=== PATIENT | female | born 1955 | race Caucasian/White ===

== ENCOUNTER 2019-05-21 13:11 | Inpatient (IN) ==
--- NOTE | 2019-05-21 13:56 | Diag Imaging Result Doc PS360 ---
EXAM: CHEST-2 VIEWS HISTORY: sob TECHNIQUE: Two views COMPARISON: 08/22/2016 FINDINGS: The lungs are well expanded. The heart is not enlarged. The vessels are not distended. There are left lower lobe infiltrates. No pleural effusions. IMPRESSION: Left lower lobe pneumonia. Electronically signed by Yaw Lopez 05/21/2019 1:53 PM
[2019-05-21 14:12] LABS: BE 2.8 mmoll (-3.0-3.0); BLOOD TYPE ARTERIAL; METHB 1.4 % (0.0-1.5); O2(CT) 16.5 mL/dL (15.0-23.0); PCO2(98.6) 35 mmHg (35-45); PO2(98.6) 60 mmHg (60-100); SAMPLE BLOOD; SAO2 94.4 % (95.0-100.0); THB 12.9 g/dL (11.5-17.4); pH(98.6) 7.48 (7.35-7.45)
[2019-05-21 14:15] LABS: ALLEN TEST YES; MODALITY ROOM AIR
[2019-05-21] MEDS ORDERED: NS 1,000 ML IV ONE ×2 (14:18)
[2019-05-21] MEDS ORDERED: LEVAQUIN 750 MG/D5W 750 MG/150 ML IVPB IV ONE (14:18)
--- NOTE | 2019-05-21 14:21 | PROVIDER DOCUMENTATION ---
HPI-Fever - General Chief Complaint: SEPSIS ALERT - P Stated Complaint: FLU SX, N/V/D Time Seen by Provider: 05/21/19 13:51 Source: patient Allergies/Adverse Reactions: Patient Allergies Allergy/AdvReac Type Severity Reaction Status Date / Time No Known Allergies Allergy Verified 01/30/14 19:17 Home Medications: Home Medication List Medication Instructions Recorded Confirmed Last Taken Type ATORVAstatin [Lipitor] 20 mg PO HS 01/30/14 08/23/16 Unknown History Furosemide 40 mg PO DAILY 01/30/14 08/22/16 Unknown History Glimepiride 4 mg PO DAILY 01/30/14 08/22/16 Unknown History Losartan/Hydrochlorothiazide 1 tab PO DAILY 01/30/14 08/22/16 Unknown History [Losartan-Hctz 100-25 mg Tab] Nifedipine [Nifedical Xl] 30 mg PO DAILY 01/30/14 08/22/16 Unknown History Meclizine [Antivert] 25 mg PO Q6H PRN 08/23/16 08/23/16 Unknown History Metformin [Glucophage] 1,000 mg PO DAILY 08/23/16 08/23/16 Unknown History Metformin [Glucophage] 500 mg PO WSUPPER 08/23/16 08/23/16 Unknown History Levofloxacin [Levaquin] 500 mg PO DAILY #12 tablet 08/24/16 Unknown Rx Metronidazole [Flagyl] 500 mg PO TID #36 tablet 08/24/16 Unknown Rx - History of Present Illness-Fever Nature of Presenting Problem: 63 YOF PRESENTS WITH KNOWN INFLUENZA DX THURSDAY. WITH WORSENING COUGH, CONGESTION, SOB. 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 denies: see HPI, discharge, dry eyes, decreased vision, blurred vision, double vision, eye pain, redness, other Ears, Nose, Mouth & Throat: reports: no symptoms reported. denies: see HPI, ear discharge, ear pain, hearing loss, tinnitus, epistaxis, sinus problem, nose pain, loose teeth, mouth/dental pain, mouth swelling, hoarseness, throat pain, throat swelling, other Cardiovascular: reports: no symptoms reported. denies: see HPI, chest pain, edema, heart murmur, irregular heart rate, orthopnea, palpitations, poor circulation, PND, syncope, other Respiratory: reports: see HPI, cough, dyspnea on exertion, excessive sputum production, shortness of breath. denies: no symptoms reported, chronic cough, hemoptysis, pleurisy, wheezing, other Gastrointestinal: reports: no symptoms reported. denies: see HPI, abdominal pain, hematemesis, constipation, diarrhea, difficulty swallowing, frequent heartburn, nausea, poor appetite, rectal bleeding, vomiting, other Genitourinary: reports: no symptoms reported. denies: see HPI, dysuria, discharge, frequency, flank pain, frequent UTI's, hematuria, hesitency, incontinence, urinary retention, urgency, other Musculoskeletal: reports: muscle weakness (GENERALIZED) Integumentary: reports: no symptoms reported. denies: see HPI, hives, hair loss, itching, mole changes, nail changes, rash, skin sores/ulcer, skin thickening, other Neurological: reports: no symptoms reported. denies: see HPI, ataxia, dizziness/vertigo, headache/migraines, loss of balance, numbness, paresthesia, seizure, slurred speech, syncope, tremors, other Psychiatric: reports: no symptoms reported. denies: see HPI, anxiety, anti- depressant use, alcohol/drug dependence, depression, emotional problems, insomnia, panic attacks, suicidal thoughts, other Endocrine: reports: no symptoms reported. denies: see HPI, change in skin pigment, excessive sweating, goiter, cold intolerance, heat intolerance, increased hunger, increased thirst, polyuria, other Hematologic/Lymphatic: reports: no symptoms reported. denies: see HPI, blood clots, easy bruising, low blood count, lymphedema, prolonged bleeding, swollen lymph nodes, transfusions, other Allergic/Immunologic: reports: no symptoms reported. denies: see HPI, allergic reactions, allergic rhinitis, asthma, eczema, food allergy, frequent infections, hay fever, hives, positive PPD, urticaria, other Past History - Adult - PAST MEDICAL HISTORY-ADULT Review of Records: reports: Nursing Assessment Review, Social history reviewed & non-contributory. Major Childhood Illnesses: reports: denies history Cardiovascular: reports: HTN Respiratory: reports: denies history Gastrointestinal: reports: diverticulosis Obstetrical/Gynecological: reports: denies history Genitourinary: reports: denies history Musculoskeletal: reports: denies history Neurological: reports: denies history Psychiatric: reports: denies history Endocrine/Immune: reports: Diabetes Other Conditions: reports: denies history - PRIOR SURGERIES/PROCEDURES Surgical/Procedure History: reports: BTL, other (tubal ligation and carpal tunnel) - IMMUNIZATION STATUS Childhood Immunizations: See Nurse Assessment Flu Vaccine: See Nurse Assessment - FAMILY HISTORY Family History: reviewed, not pertinent Physical Exam-General - PHYSICAL EXAM-ADULT Initial Vital Signs Reviewed: Yes - CONSTITUTIONAL General Appearance: alert, no apparent distress - EYES Eyes: PERRL/EOMI, pink conjunctivae - HEAD, EARS, NOSE, MOUTH & THROAT HENMT: normocephalic/atraumatic, moist mucous membranes, normal ENT inspection - NECK Neck: non-tender, full range of motion, supple - RESPIRATORY Respiratory: chest non-tender, no respiratory distress, no accessory muscle use, crackles - CARDIOVASCULAR Cardiovascular: normal peripheral pulses, regular rate, rhythm, no edema, no gallop, no JVD, no murmur - GASTROINTESTINAL (ABDOMEN) Abdominal Exam: normal bowel sounds, non tender, soft - LYMPHATIC Lymphatic: no adenopathy - MUSCULOSKELETAL Back Exam: normal inspection, no CVA tenderness, no vertebral tenderness Extremity: normal range of motion, non-tender, normal gait - SKIN Integumentary: normal color, normal turgor, warm/dry - NEUROLOGIC Neurologic: grossly normal - PSYCHIATRIC Psych/Mental Status: normal mood/affect, oriented x 3 Progress - PLAN OF CARE/RESULTS Progress/Plan/Lab Results: Vital Signs - 8 hr 05/21/19 13:13 05/21/19 14:37 Temperature 98.3 F Pulse Rate 112 H 100 H Respiratory Rate 22 22 Blood Pressure 157/95 133/90 O2 Sat by Pulse Oximetry 90 L 96 Laboratory Results - last 24 hr 05/21/19 05/21/19 05/21/19 13:48 14:07 14:07 WBC RBC Hgb Hct MCV MCH MCHC RDW Std Deviation Plt Count MPV Immature Gran % (Auto) Neut % (Auto) Lymph % (Auto) [place] % (Auto) Eos % (Auto) Baso % (Auto) Immature Gran # (Auto) Neut # (Auto) Lymph # (Auto) [place] # (Auto) Eos # (Auto) Baso # (Auto) Segmented Neutrophils Lymphocytes Monocytes Eosinophils PT 13.4 INR 0.97 PTT (Actin FS) 37.7 Specimen Type ARTERIAL Sample Site R RADIAL pH 7.48 H pCO2 35 pO2 60 HCO3 27.0 H Base Excess 2.8 Oxyhemoglobin 91.0 L ABG O2 Sat (Calculated) 16.5 ABG O2 Saturation 94.4 L ABG Carboxyhemoglobin 2.20 ABG Methemoglobin 1.4 Heri Test YES A-a O2 Difference 46.0 Total Hemoglobin 12.9 Lactate 2.30 H Blood Gas Modality ROOM AIR FiO2 % 21.0 Sodium 133 L Potassium 3.1 L Chloride 92 L Carbon Dioxide 24 L Anion Gap 17 BUN 17 Creatinine 0.9 Estimated GFR/1.73 m2 > 60 BUN/Creatinine Ratio 19 Glucose 154 H Calculated Osmolality 271 Calcium 9.2 Total Bilirubin 0.50 AST 53 H ALT 19 Alkaline Phosphatase 57 Creatine Kinase 418 H Troponin T Total Protein 8.4 H Albumin 3.8 Globulin 5.0 Albumin/Globulin Ratio 1.0 Plasma Lactate Urine Source Urine Color Urine Turbidity Urine pH Ur Specific [place] Urine Protein Ur Glucose (Stick) Ur Ketones (Stick) Urine Blood Urine Nitrite Urine Bilirubin Urobilinogen Dipstick Urine Leukocytes Urine WBC (Auto) Urine RBC (Auto) U Epithel Cells (Auto) Urine Bacteria (Auto) Urine Crystals Small Round Cells Urine Casts Urine Yeast-like Cells 05/21/19 05/21/19 05/21/19 14:07 14:07 14:07 WBC 12.27 H RBC 4.50 Hgb 11.7 L Hct 37.1 MCV 82.4 MCH 26.0 L MCHC 31.5 L RDW Std Deviation 15.3 H Plt Count 397 MPV 10.3 Immature Gran % (Auto) 0.3 Neut % (Auto) 76.0 H Lymph % (Auto) 13.6 L [place] % (Auto) 8.8 Eos % (Auto) 1.0 Baso % (Auto) 0.3 Immature Gran # (Auto) 0.04 Neut # (Auto) 9.32 H Lymph # (Auto) 1.67 [place] # (Auto) 1.08 H Eos # (Auto) 0.12 Baso # (Auto) 0.04 Segmented Neutrophils 76 H Lymphocytes 14 L Monocytes 9 Eosinophils 1 PT INR PTT (Actin FS) Specimen Type Sample Site pH pCO2 pO2 HCO3 Base Excess Oxyhemoglobin ABG O2 Sat (Calculated) ABG O2 Saturation ABG Carboxyhemoglobin ABG Methemoglobin Heri Test A-a O2 Difference Total Hemoglobin Lactate Blood Gas Modality FiO2 % Sodium Potassium Chloride Carbon Dioxide Anion Gap BUN Creatinine Estimated GFR/1.73 m2 BUN/Creatinine Ratio Glucose Calculated Osmolality Calcium Total Bilirubin AST ALT Alkaline Phosphatase Creatine Kinase Troponin T < 0.010 Total Protein Albumin Globulin Albumin/Globulin Ratio Plasma Lactate 2.1 Urine Source Urine Color Urine Turbidity Urine pH Ur Specific [place] Urine Protein Ur Glucose (Stick) Ur Ketones (Stick) Urine Blood Urine Nitrite Urine Bilirubin Urobilinogen Dipstick Urine Leukocytes Urine WBC (Auto) Urine RBC (Auto) U Epithel Cells (Auto) Urine Bacteria (Auto) Urine Crystals Small Round Cells Urine Casts Urine Yeast-like Cells 05/21/19 14:17 WBC RBC Hgb Hct MCV MCH MCHC RDW Std Deviation Plt Count MPV Immature Gran % (Auto) Neut % (Auto) Lymph % (Auto) [place] % (Auto) Eos % (Auto) Baso % (Auto) Immature Gran # (Auto) Neut # (Auto) Lymph # (Auto) [place] # (Auto) Eos # (Auto) Baso # (Auto) Segmented Neutrophils Lymphocytes Monocytes Eosinophils PT INR PTT (Actin FS) Specimen Type Sample Site pH pCO2 pO2 HCO3 Base Excess Oxyhemoglobin ABG O2 Sat (Calculated) ABG O2 Saturation ABG Carboxyhemoglobin ABG Methemoglobin Heri Test A-a O2 Difference Total Hemoglobin Lactate Blood Gas Modality FiO2 % Sodium Potassium Chloride Carbon Dioxide Anion Gap BUN Creatinine Estimated GFR/1.73 m2 BUN/Creatinine Ratio Glucose Calculated Osmolality Calcium Total Bilirubin AST ALT Alkaline Phosphatase Creatine Kinase Troponin T Total Protein Albumin Globulin Albumin/Globulin Ratio Plasma Lactate Urine Source CLEAN CATCH Urine Color YELLOW Urine Turbidity HAZY Urine pH 5.5 Ur Specific [place] 1.012 Urine Protein TRACE A Ur Glucose (Stick) NEGATIVE Ur Ketones (Stick) NEGATIVE Urine Blood NEGATIVE Urine Nitrite NEGATIVE Urine Bilirubin NEGATIVE Urobilinogen Dipstick NORMAL Urine Leukocytes LARGE A Urine WBC (Auto) 20-40 A Urine RBC (Auto) Not Reportable U Epithel Cells (Auto) >10 A Urine Bacteria (Auto) 2+ Urine Crystals URIC ACID PRESENT Small Round Cells RENAL PRESENT Urine Casts NONE SEEN Urine Yeast-like Cells NONE SEEN Orders Category Date Time Status Cardiac Monitoring DIRECTED Care 05/21/19 13:19 Active IV Insertion ORDERED Care 05/21/19 13:19 Completed Notify MD of + Sepsis Screen NOW Care 05/21/19 13:19 Completed CHEST-2 VIEWS [RAD] Stat Exams 05/21/19 13:19 Completed ABG [RESP] Routine Lab 05/21/19 13:48 Completed BLOOD CULTURE [BLDCUL] Stat Lab 05/21/19 14:05 Ordered CBC WITH DIFF [HEME] Stat Lab 05/21/19 14:07 Completed CK PROFILE [SP CHEM] Stat Lab 05/21/19 14:07 Results COMPREHENSIVE METABOLIC PANEL [CHEM] Stat Lab 05/21/19 14:07 Results LACTATE, PLASMA [CHEM] Lab 05/21/19 16:30 Uncollected LACTATE, PLASMA [CHEM] Lab 05/21/19 19:30 Uncollected LACTATE, PLASMA [CHEM] Q3H Lab 05/21/19 14:07 Completed PROTIME WITH INR [COAG] Stat Lab 05/21/19 14:07 Completed PTT [COAG] Stat Lab 05/21/19 14:07 Completed TROPONIN T Stat Lab 05/21/19 14:07 Completed URINALYSIS W/POSS RFLX CULT [URINALYSIS] Stat Lab 05/21/19 14:17 Results URINE CULTURE [RM] Routine Lab 05/21/19 14:47 Ordered URINE MANUAL MICROSCOPIC [URINALYSIS] Stat Lab 05/21/19 14:17 Results 0.9% Sodium Chloride Inj [Ns] 1,000 ml Med 05/21/19 14:18 Active IV 999 mls/hr 0.9% Sodium Chloride Inj [Ns] 1,000 ml Med 05/21/19 14:18 Active IV 999 mls/hr Benzonatate [Tessalon] Med 05/21/19 14:39 Discontinued 100 mg PO NOW ONE Levofloxacin 750 mg/D5w [Levaquin 750 mg/D5w] Med 05/21/19 14:18 Active 750 mg in 150 ml IV NOW Oxygen Device Stat Oth 05/21/19 13:19 Active Result Diagrams: 05/21/19 14:07 05/21/19 14:07 - XRAY 1 XRAY Study: Chest Impression: See EMR Report (EXAM: CHEST-2 VIEWS HISTORY: sob TECHNIQUE: Two views COMPARISON: 08/22/2016 FINDINGS: The lungs are well expanded. The heart is not enlarged. The vessels are not distended. There are left lower lobe infiltrates. No pleural effusions. IMPRESSION: Left lower lobe pneumonia. Electronically signed by Yaw Lopez 05/21/2019 1:53 PM 05/21/19 1353 Interpreting Physician: Yaw Lopez MD Dictated Date/Time: 05/21/19 1353 cc: Alan Ma MD; Kenna Whitney MD) - CONSULTS/PCP/HOSPITALIST Notification #1 *Consult/PCP/Hospitalist*: DR. HENDERSON Time Discussed: 14:49 Consult Disposition: Admit Departure - Departure Date of Disposition Decision: 05/21/19 Time of Disposition Decision: 14:42 DIAGNOSIS: Pneumonia, Influenza, Hypoxia, Hypokalemia Disposition: ADMITTED INPATIENT 09 Certified Medical Emergency: Emergent Condition: Stable Referrals and Follow-Ups: Kenna Whitney MD [Primary Care Provider] - - Critical Care Note This patient required my direct & personal management of CC.: No Attestation - Physician/ YOJANA Attestation Patient care was provided by Advanced Practice Provider:: Yes Advanced Practice Provider:: Mi Holland Advanced Practice Provider documentation review:: The Mid-level provider documentation, treatment plan and medical decision making was reviewed by the physician who agrees with all treatment and medical decision making by the MLP. The physician spent face to face time with patient:: No Advanced Practice Provider documentation review:: Supervising physician onsite and consulted in the evaluation and care of this patient. The physician did not have a face to face encounter with the patient.
[2019-05-21 14:22] LABS: URINE SOURCE CLEAN CATCH
[2019-05-21 14:25] LABS: BILIRUBIN URINE NEGATIVE (NEGATIVE); BLOOD URINE NEGATIVE (NEGATIVE); COLOR YELLOW; GLUCOSE URINE NEGATIVE (NEGATIVE); KETONE URINE NEGATIVE (NEGATIVE); LEUKOCYTES URINE LARGE (NEGATIVE); NITRITE URINE NEGATIVE (NEGATIVE); PH URINE 5.5; PROTEIN URINE TRACE mg/dL (NEGATIVE); SP GRAVITY URINE 1.012; TURBIDITY URINE HAZY (CLEAR); UROBILINOGEN URINE NORMAL (NORMAL)
[2019-05-21 14:30] LABS: BASO# 0.04 X1000 (0.0-0.2); BASO% 0.3 % (0.0-0.8); EOS# 0.12 X1000 (0.0-0.7); HEMATOCRIT 37.1 % (37.0-47.0); HEMOGLOBIN 11.7 g/dL (12.0-16.0); IMM GRAN# 0.04 X1000 (0.0-0.04); IMM GRAN% 0.3 % (0.0-0.5); INR 0.97; LYMPH# 1.67 X1000 (1.2-3.4); LYMPH% 13.6 % (20.5-51.1); MCHC 31.5 g/dL (33-37); MCV 82.4 FL (81-99); MONO# 1.08 X1000 (0.11-0.59); MONO% 8.8 % (1.7-9.3); MPV 10.3 FL (7.4-10.4); NEUT# 9.32 X1000 (1.4-6.5); PLT 397 X1000 (130-400); PROTIME 13.4 Seconds (11.0-16.0); RDW 15.3 % (11.5-14.5); WBC 12.27 X1000 (4.8-10.8)
[2019-05-21 14:31] LABS: EOS 1 % (1-10); LYMPHS 14 % (21-51); MONO 9 % (1-9); PTT 37.7 Seconds (22.3-41.8); SEGS 76 % (42-75)
[2019-05-21 14:39] LABS: AGAP 17; ALBUMIN 3.8 g/dL (3.5-5.0); ALKALINE PHOSPHATASE 57 U/L (32-104); BUN 17 mg/dL (8-22); CALCIUM 9.2 mg/dL (8.8-10.2); CHLORIDE 92 mmol/L (98-107); COSMO 271; CREATININE 0.9 mg/dL (0.5-0.9); ESTIMATED GFR > 60; GLUCOSE 154 mg/dL (70-104); GOT 53 U/L (10-30); GPT 19 U/L (10-36); POTASSIUM 3.1 mmol/L (3.5-5.1); SODIUM 133 mmol/L (136-145); TCO2 24 mmol/L (25-35); TOTAL PROTEIN 8.4 g/dL (6.3-8.3)
[2019-05-21] MEDS ORDERED: TESSALON PO ONE (14:39)
[2019-05-21 14:41] LABS: CK PROFILE 418 U/L (24-173)
[2019-05-21 14:46] LABS: UR EPITHELIAL CELLS >10 /HPF (<10); URINE BACTERIA 2+ /HPF; URINE CASTS NONE SEEN; URINE WBC 20-40 /HPF (<10); URINE YEAST NONE SEEN
[2019-05-21 14:47] LABS: URINE CRYSTALS URIC ACID PRESENT; URINE SMALL ROUND CELLS RENAL PRESENT
[2019-05-21 15:02] LABS: CK INDEX 0.6 (0.0-2.5); CK-MB 2.65 ng/mL (0.0-5.0)
[2019-05-21] MEDS ORDERED: DUONEB (A & A) INH PRN (16:02)
[2019-05-21] MEDS ORDERED: ROCEPHIN 1 GM in NS 50 ML IV SCH (16:02)
[2019-05-21] MEDS ORDERED: ZOFRAN IV PRN (16:08)
[2019-05-21] MEDS ORDERED: ANTIVERT PO PRN (16:08)
[2019-05-21] MEDS ORDERED: TYLENOL PO PRN (16:08)
[2019-05-21] MEDS ORDERED: KLOR-CON PO ONE (16:10)
[2019-05-21 16:59] LABS: HEMOGLOBIN A1C 9.2 % (4.8-6.0)
--- NOTE | 2019-05-21 17:13 | HISTORY AND PHYSICAL ---
CHIEF COMPLAINT: Shortness of breath and cough. This is a 61-year-old female with past medical history diabetes, hyperlipidemia and hypertension who presented to emergency department complaining of 3 day history of cough and shortness of breath that was getting progressively worse. She did not notice any fever. The patient apparently was diagnosed influenza on Thursday. Denies any sick contacts. Here in the emergency department she was worked up and white cell count was found to be 12,000 and the x- ray shows left lower lobe pneumonia, she is going to be admitted for further evaluation and treatment. PAST MEDICAL HISTORY: 1. Diabetes mellitus type 2. 2. Hyperlipidemia . 3. Hypertension. 4. History of diverticulosis. PAST SURGICAL HISTORY: 1. Tubal ligation . 2. Cervical fusion. 3. Carpal syndrome. SOCIAL HISTORY: Patient lives alone, denies any tobacco, alcohol or illicit drug use. FAMILY HISTORY: Positive for mother with cervical cancer and stroke. Father of old age, sister has diabetes. ALLERGIES: No known drug allergies. REVIEW OF SYSTEMS: Were reviewed and all symptoms are related to H and P. PHYSICAL EXAMINATION: VITALS: Temperature 98.3 degrees, heart rate 100, respiratory rate 22, blood pressure 133/90, O2 saturation 96% 2 L nasal cannula. GENERAL: This is a 63-year-old female lying in bed in no acute distress. HEENT: Head is normocephalic, atraumatic. NECK: No JVD noted. No carotid bruits, no lymphadenopathy. CARDIOVASCULAR: S1, S2 heard. No murmurs, gallops, or rubs. Regular rate and rhythm. RESPIRATORY: Rhonchi is noted on the left lower base, patient not using any accessory muscles or having work of breathing. ABDOMEN: Soft, nontender to palpation. Bowel sounds present. No organomegaly. EXTREMITIES: No clubbing, cyanosis or edema. Peripheral pulses present in both legs. NEUROLOGICAL: The patient alert, oriented x3, moves 4 extremities. LABORATORY DATA: White cell count 12.37, hemoglobin 11.7, hematocrit 37.1, platelets 397,000 with ABG also shows pH 7.3 with pCO2 35, PO2 60, potassium 3.1, glucose 154. ASSESSMENT/PLAN: 1. Acute respiratory failure secondary to left lower lobe pneumonia, will start ceftriaxone, azithromycin, breathing treatment continue DuoNeb every 4 hours as scheduled, will continue to check CBC and BMP daily. 2. Diabetes mellitus type 2. Will hold metformin and glipizide and will start sliding scale insulin moderate doses and Accu-Chek before meals and also bedtime. 3. Hyperlipidemia, will continue with statins. 4. Hypokalemia, will replete potassium and check BMP tomorrow. 5. Further recommendations to follow according to the clinical situation of the patient . cc: Rai Marroquin MD MTDD
[2019-05-21] MEDS: HUMALOG SUBQ SCH ×2 (17:37→22:20)
[2019-05-21] MEDS: NS 1,000 ML IV SCH (17:37)
[2019-05-21] MEDS: ROCEPHIN 1 GM in NS 50 ML IV SCH (17:38)
[2019-05-21] MEDS: LOVENOX SUBQ SCH (17:38)
[2019-05-21] MEDS: ZITHROMAX 500 MG/NS 500 MG/250 ML IVPB IV SCH (18:23)
[2019-05-21] MEDS: DUONEB (A & A) INH SCH ×2 (19:55→22:51)
[2019-05-21] MEDS ORDERED: LIPITOR PO SCH (21:00)
[2019-05-21] MEDS: LIPITOR PO SCH (22:20)
[2019-05-22] MEDS ORDERED: BLISTEX MEDICATED BERRY LIP BALM TOP PRN (02:17)
[2019-05-22] MEDS: DUONEB (A & A) INH SCH ×6 (02:52→22:51)
[2019-05-22] MEDS: NS 1,000 ML IV SCH ×3 (03:26→22:10)
[2019-05-22 06:10] LABS: BASO# 0.04 X1000 (0.0-0.2); BASO% 0.5 % (0.0-0.8); EOS# 0.09 X1000 (0.0-0.7); EOS% 1.1 % (0.0-10.0); HEMATOCRIT 33.3 % (37.0-47.0); HEMOGLOBIN 10.4 g/dL (12.0-16.0); IMM GRAN# 0.03 X1000 (0.0-0.04); IMM GRAN% 0.4 % (0.0-0.5); LYMPH# 1.29 X1000 (1.2-3.4); LYMPH% 15.5 % (20.5-51.1); MCH 26.7 PG (27-31); MCHC 31.2 g/dL (33-37); MCV 85.4 FL (81-99); MONO# 0.68 X1000 (0.11-0.59); MONO% 8.2 % (1.7-9.3); MPV 9.9 FL (7.4-10.4); NEUT# 6.18 X1000 (1.4-6.5); NEUT% 74.3 % (42.2-75.2); PLT 351 X1000 (130-400); RDW 15.4 % (11.5-14.5); WBC 8.31 X1000 (4.8-10.8)
[2019-05-22 06:14] LABS: AGAP 13; BUN 9 mg/dL (8-22); CALCIUM 8.2 mg/dL (8.8-10.2); CHLORIDE 101 mmol/L (98-107); COSMO 278; CREATININE 0.6 mg/dL (0.5-0.9); ESTIMATED GFR > 60; GLUCOSE 172 mg/dL (70-104); SODIUM 138 mmol/L (136-145); TCO2 24 mmol/L (25-35)
[2019-05-22] MEDS: HUMALOG SUBQ SCH (06:22)
[2019-05-22] MEDS: PRILOSEC PO SCH (06:46)
[2019-05-22] MEDS: HUMALOG (PARKWAY) SUBQ SCH ×4 (06:47→22:09)
[2019-05-22] MEDS ORDERED: KLOR-CON PO ONE (08:04)
[2019-05-22] MEDS ORDERED: HYZAAR 50/12.5 MG PO SCH (09:00)
[2019-05-22] MEDS: COZAAR PO SCH (10:41)
[2019-05-22] MEDS: ADALAT CC PO SCH (10:42)
[2019-05-22] MEDS: HYDROCHLOROTHIAZIDE PO SCH (10:42)
[2019-05-22] MEDS: LASIX PO SCH (10:42)
[2019-05-22] MEDS ORDERED: MAGNESIUM SULFATE 2 GM/S.W.I. 2 GM/50 ML IVPB IV ONE (11:19)
--- NOTE | 2019-05-22 12:01 | PROGRESS NOTE ---
DATE: 05/22/2019 SUBJECTIVE: This patient seems to be feeling much better today. She came in with acute respiratory failure due to pneumonia, and apparently she was diagnosed with influenza last Thursday. As per the patient, she took 1-time dose treatment, but no Tamiflu. OBJECTIVE: Vital Signs: Temperature 98.3 degrees, pulse 90, respiratory rate 20, blood pressure 149/71, oxygen saturation 96 on 2 L of nasal cannula. HEENT: Head normocephalic. No trauma. PERRLA. Neck: Supple. No JVD. No masses. Central trachea. Chest: Decreased breath sounds globally with some crepitus and rhonchi, mostly on the left side, left base. Abdomen: Soft, nontender, nondistended. No hepatosplenomegaly. Extremities: No edema, no clubbing, no cyanosis. Neurological: The patient is alert. She is oriented x3. No focal deficits. LABORATORY DATA: WBC 8.1, hemoglobin 10.4, hematocrit 33.3, platelets 351,000. Sodium 138, potassium 3.0, chloride 101, bicarbonate 24, BUN 9, creatinine 0.6, glucose 172, calcium 9.2. Magnesium 1.4. Hemoglobin A1c 9.2. ASSESSMENT AND PLAN: 1. Acute hypoxemic respiratory failure due to left lower lobe pneumonia. As per the patient, she also had a recent history of influenza, and she received a x1 dose of treatment, but she does not remember the name. She did not get Tamiflu though. She has been placed here on ceftriaxone and azithromycin, breathing treatment, and oxygen supplementation, and she seems to be doing better. 2. Hypokalemia. I will replace the potassium. Magnesium level is also low. 3. Hypomagnesemia. Aware. Magnesium level will be replaced. 4. Type 2 diabetes with an elevated hemoglobin A1c at 9.2. Diet and exercise also has been discussed with the patient. We will continue with the same management for now. 5. Hyperlipidemia. Continue with statins. Overall, this patient seems to be feeling a little bit better, but she is still complaining of shortness of breath and cough. Will continue with the same management for now, and will monitor. I do believe in 48 to 72 hours, this patient can be discharged. cc: Diego An MD
[2019-05-22] MEDS: LOVENOX SUBQ SCH (16:42)
[2019-05-22] MEDS: ROCEPHIN 1 GM in NS 50 ML IV SCH (16:42)
[2019-05-22] MEDS: ZITHROMAX 500 MG/NS 500 MG/250 ML IVPB IV SCH (18:06)
[2019-05-22] MEDS: LIPITOR PO SCH (22:10)
[2019-05-23] MEDS: DUONEB (A & A) INH SCH ×6 (02:33→22:56)
[2019-05-23 06:05] LABS: AGAP 12; BASO% 1.3 % (0.0-0.8); BUN 7 mg/dL (8-22); CALCIUM 8.2 mg/dL (8.8-10.2); CHLORIDE 103 mmol/L (98-107); COSMO 282; CREATININE 0.6 mg/dL (0.5-0.9); EOS# 0.23 X1000 (0.0-0.7); EOS% 2.9 % (0.0-10.0); ESTIMATED GFR > 60; GLUCOSE 176 mg/dL (70-104); HEMATOCRIT 33.4 % (37.0-47.0); HEMOGLOBIN 10.2 g/dL (12.0-16.0); IMM GRAN# 0.09 X1000 (0.0-0.04); IMM GRAN% 1.2 % (0.0-0.5); LYMPH# 1.65 X1000 (1.2-3.4); LYMPH% 21.2 % (20.5-51.1); MAGNESIUM 1.7 mg/dL (1.5-2.7); MCH 26.3 PG (27-31); MCHC 30.5 g/dL (33-37); MCV 86.1 FL (81-99); MONO# 0.69 X1000 (0.11-0.59); MONO% 8.8 % (1.7-9.3); MPV 9.7 FL (7.4-10.4); NEUT# 5.04 X1000 (1.4-6.5); NEUT% 64.6 % (42.2-75.2); PLT 382 X1000 (130-400); POTASSIUM 3.1 mmol/L (3.5-5.1); RBC 3.88 XMIL (4.2-5.4); RDW 15.6 % (11.5-14.5); SODIUM 140 mmol/L (136-145); TCO2 25 mmol/L (25-35)
[2019-05-23] MEDS: NS 1,000 ML IV SCH ×2 (06:10→14:06)
[2019-05-23] MEDS: PRILOSEC PO SCH (06:11)
[2019-05-23] MEDS: HUMALOG (PARKWAY) SUBQ SCH ×4 (06:40→21:41)
[2019-05-23 07:53] LABS: EOS 3 % (1-10); LYMPHS 21 % (21-51); SEGS 70 % (42-75)
[2019-05-23 07:54] LABS: MONO 6 % (1-9)
[2019-05-23] MEDS ORDERED: KLOR-CON PO ONE (09:00)
[2019-05-23] MEDS: LASIX PO SCH (09:52)
[2019-05-23] MEDS: HYDROCHLOROTHIAZIDE PO SCH (09:52)
[2019-05-23] MEDS: COZAAR PO SCH (09:52)
[2019-05-23] MEDS: ADALAT CC PO SCH (09:52)
[2019-05-23] MEDS: ZITHROMAX 500 MG/NS 500 MG/250 ML IVPB IV SCH (17:41)
[2019-05-23] MEDS: LOVENOX SUBQ SCH (17:41)
[2019-05-23] MEDS: ROCEPHIN 1 GM in NS 50 ML IV SCH (17:42)
[2019-05-23] MEDS: LIPITOR PO SCH (20:36)
[2019-05-24] MEDS: NS 1,000 ML IV SCH ×2 (00:32→09:47)
[2019-05-24] MEDS: DUONEB (A & A) INH SCH ×4 (02:36→14:31)
[2019-05-24] MEDS: PRILOSEC PO SCH (06:56)
[2019-05-24] MEDS: HUMALOG (PARKWAY) SUBQ SCH ×2 (06:56→12:11)
[2019-05-24 07:16] LABS: AGAP 12; BUN 6 mg/dL (8-22); CALCIUM 8.1 mg/dL (8.8-10.2); CHLORIDE 102 mmol/L (98-107); COSMO 283; CREATININE 0.6 mg/dL (0.5-0.9); ESTIMATED GFR > 60; GLUCOSE 202 mg/dL (70-104); SODIUM 140 mmol/L (136-145); TCO2 26 mmol/L (25-35)
[2019-05-24 07:17] LABS: BASO# 0.06 X1000 (0.0-0.2); BASO% 0.7 % (0.0-0.8); EOS# 0.36 X1000 (0.0-0.7); EOS% 4.4 % (0.0-10.0); HEMATOCRIT 33.1 % (37.0-47.0); HEMOGLOBIN 9.9 g/dL (12.0-16.0); IMM GRAN# 0.15 X1000 (0.0-0.04); IMM GRAN% 1.9 % (0.0-0.5); LYMPH# 1.83 X1000 (1.2-3.4); LYMPH% 22.6 % (20.5-51.1); MCH 25.6 PG (27-31); MCHC 29.9 g/dL (33-37); MCV 85.5 FL (81-99); MONO# 0.67 X1000 (0.11-0.59); MONO% 8.3 % (1.7-9.3); MPV 9.6 FL (7.4-10.4); NEUT# 5.02 X1000 (1.4-6.5); NEUT% 62.1 % (42.2-75.2); PLT 455 X1000 (130-400); RBC 3.87 XMIL (4.2-5.4); RDW 15.5 % (11.5-14.5); WBC 8.09 X1000 (4.8-10.8)
[2019-05-24 07:19] LABS: EOS 4 % (1-10); LYMPHS 22 % (21-51); MONO 8 % (1-9); SEGS 66 % (42-75)
[2019-05-24 07:29] VITALS: BP 151/71
[2019-05-24] MEDS: LASIX PO SCH (09:47)
[2019-05-24] MEDS: COZAAR PO SCH (09:47)
[2019-05-24] MEDS: HYDROCHLOROTHIAZIDE PO SCH (09:48)
[2019-05-24] MEDS: ADALAT CC PO SCH (09:48)
[2019-05-24] MEDS ORDERED: TESSALON PO PRN (10:05)
[2019-05-24] MEDS ORDERED: ROBITUSSIN-AC PO PRN (11:57)
[2019-05-24] MEDS ORDERED: KLOR-CON PO ONE (14:16)
--- NOTE | 2019-05-24 16:10 | PROGRESS NOTE ---
DATE: 05/23/2019 SUBJECTIVE: She was having significant cough and congestion. OBJECTIVE: Vital Signs: Blood pressure was 146/51, heart rate 94, respiratory rate of 20, temperature 98.2 degrees, and oxygen saturation of 93% on 2 L. Cardiovascular: Regular rate and rhythm. Pulmonary: Bilateral breath sounds, diminished at bases. Gastrointestinal: Soft, nontender, nondistended. Bowel sounds are positive. LABORATORY DATA: White count 7, hemoglobin and hematocrit of 10 and 33, platelets 382,000. Potassium 3.1. PROBLEM LIST: 1. Left lower lobe pneumonia, status post flu. We will continue antibiotics and follow. 2. Hypokalemia. We will supplement and follow. 3. Recent history of influenza, but she took a Xofluza, which is a 1 time dose medication for the flu. 4. Type 2 diabetes. We will continue regular medications. DISPOSITION: If improving, may discharge in the next 24 hours. cc: Jose C Rodriguez MD
--- NOTE | 2019-05-24 16:33 | HISTORY AND PHYSICAL ---
DISCHARGE DIAGNOSIS: Chronic obstructive pulmonary disease exacerbation. HOSPITAL COURSE: Patient is breathing much better today. She is 94 on room air. Her white count is normal at 8000. She is afebrile. Her lungs are clear. She was felt stable for discharge on Omnicef and azithromycin. This is a [id number] encounter note with Jennifer Sanchez. cc: Jose C Rodriguez MD
--- NOTE | 2019-05-24 17:19 | DISCHARGE SUMMARY ---
ADMISSION DATE: 05/21/2019 DISCHARGE DATE: 05/24/2019 CONSULTATIONS: None. PERTINENT PROCEDURES: Chest x-ray: Left lower lobe pneumonia. DISCHARGE DIAGNOSES: 1. Acute hypoxemic respiratory failure due to left lower lobe pneumonia secondary to influenza, resolved. 2. Left lower lobe pneumonia. Patient has been on IV Rocephin and azithromycin x4 days. She will be discharged on 1 more day of p.o. azithromycin and Omnicef b.i.d. 3. Recent diagnosis of influenza. She was treated in her doctor's office, Dr. Whitney, last Thursday with a 1 time dose of Xofluza. 4. Electrolyte abnormalities, hypokalemia, hypomagnesemia have been replenished. 5. Type 2 diabetes, uncontrolled with elevated hemoglobin A1c of 9.2. Discussed diet and exercise. 6. Hyperlipidemia. Continue statin. HOSPITAL COURSE: Briefly, Ms. Ramos is a 61-year-old female with a past medical history of uncontrolled diabetes mellitus, hyperlipidemia, hypertension, who presented to the ED with a 3-day history of cough and shortness of breath that was getting progressively worse. She had been diagnosed with the flu on Thursday. Came to the ED to be evaluated and was found to have a white count of 12,000. X-ray showed a left lower lobe pneumonia. She was admitted and started on IV Rocephin and azithromycin, bronchodilators, and aggressive pulmonary toilet and was placed on supplemental O2 on admission for hypoxemic respiratory failure. She is currently saturating well on room air. She has been afebrile throughout her admission and again has been weaned off of her supplemental O2 and will be discharged home on 1 more day p.o. azithromycin and b.i.d. Omnicef. VITAL SIGNS: At time of discharge, temperature is 98.1 degrees, heart rate 87, respirations 20, blood pressure 151/71. O2 is 95% on room air. DISCHARGE DIET: Diabetic. DISCHARGE MEDICATIONS: 1. Shelley 180 mg p.o. daily. 2. Antivert 25 mg p.o. q.6 hours p.r.n. dizziness. 3. Flonase 1 spray intranasal daily. 4. Lasix 40 mg p.o. daily. 5. Glimepiride 4 mg p.o. daily. 6. Metformin 500 mg p.o. b.i.d. 7. Losartan/hydrochlorothiazide 1 tab p.o. daily. 8. Lantus 20 units subcutaneous daily. 9. Linzess 145 mcg p.o. p.r.n. constipation. 10. Lipitor 20 mg p.o. at bedtime. 11. Losartan/hydrochlorothiazide 1 tab p.o. daily. 12. Nifedipine 30 mg p.o. daily. 13. Azithromycin 500 mg p.o. daily for 1 tab. 14. DuoNeb 3 mL inhaled t.i.d. for 1 week, then TID p.r.n. dyspnea. 15. Omnicef 300 mg p.o. b.i.d. x14 tablets. FOLLOWUP: Ms. Ramos is being discharged back home with self care. She is to follow up with her primary care physician, Dr. Kenna Whitney, within the next 1 to 2 weeks. She is to take all medications as prescribed. She can return to the ED or call 911 for any worsening of symptoms. Dictated by GEGE Amanda for Jose C Rodriguez MD cc: MD Kenna Clinton MD [facility]
[2019-05-24] MEDS ORDERED: ZITHROMAX PO SCH (21:00)
== END 2019-05-24 16:05 | disposition home or self-care (01) | DRG 193 ==
LOC: P.ED 13:11 → P.MEDSURG 16:21 → SUATTDRO 16:21
PROVIDERS: ATTEND Internal Medicine

== ENCOUNTER 2019-07-13 19:06 | Inpatient (IN) ==
[2019-07-13 20:09] LABS: CALCIUM 9.4 mg/dL (8.8-10.2); CREATININE 1.3 mg/dL (0.5-0.9); MAGNESIUM 1.2 mg/dL (1.5-2.7); POTASSIUM 3.8 mmol/L (3.5-5.1); TOTAL BILIRUBIN 0.4 mg/dL (0.20-1.00); TOTAL PROTEIN 8.3 g/dL (6.3-8.3)
[2019-07-13 20:10] LABS: BASO% 0.6 % (0.0-0.8); EOS# 0.19 X1000 (0.0-0.7); EOS% 1.1 % (0.0-10.0); HEMATOCRIT 38.7 % (37.0-47.0); HEMOGLOBIN 12.1 g/dL (12.0-16.0); IMM GRAN# 0.08 X1000 (0.0-0.04); IMM GRAN% 0.5 % (0.0-0.5); LYMPH# 2.09 X1000 (1.2-3.4); LYMPH% 12.1 % (20.5-51.1); MCH 26.1 PG (27-31); MCHC 31.3 g/dL (33-37); MCV 83.4 FL (81-99); MONO# 1.57 X1000 (0.11-0.59); MONO% 9.1 % (1.7-9.3); MPV 10.6 FL (7.4-10.4); NEUT# 13.23 X1000 (1.4-6.5); NEUT% 76.6 % (42.2-75.2); PLT 483 X1000 (130-400); RBC 4.64 XMIL (4.2-5.4); WBC 17.26 X1000 (4.8-10.8)
[2019-07-13 20:17] LABS: FREE T4 1.31 ng/dL (0.93-1.70)
--- NOTE | 2019-07-13 20:19 | Diag Imaging Result Doc PS360 ---
EXAM: CHEST-2 VIEWS INDICATION: cp TECHNIQUE: 2 views COMPARISON: 05/21/2019 FINDINGS: The lungs are grossly clear. There is no discrete pleural fluid collection or pneumothorax. The cardiomediastinal silhouette and central vasculature are grossly unremarkable. IMPRESSION: No evidence of acute pathology by plain radiograph. Electronically signed by Kamlesh Umana 07/13/2019 8:17 PM
[2019-07-13 20:20] LABS: TSH 11.58 uIUmL (0.27-4.20)
[2019-07-13] MEDS ORDERED: NS 1,000 ML IV ONE ×2 (20:22→23:16)
[2019-07-13 20:35] LABS: URINE SOURCE CLEAN CATCH
[2019-07-13 20:41] LABS: BILIRUBIN URINE MODERATE (NEGATIVE); BLOOD URINE NEGATIVE (NEGATIVE); COLOR ORANGE; GLUCOSE URINE NEGATIVE (NEGATIVE); KETONE URINE NEGATIVE (NEGATIVE); TURBIDITY URINE TURBID (CLEAR); UR EPITHELIAL CELLS >10 /HPF (<10); URINE BACTERIA 2+ /HPF; URINE RBC 20-40 /HPF (<10); URINE WBC 20-40 /HPF (<10)
[2019-07-13 20:42] LABS: LEUKOCYTES URINE MODERATE (NEGATIVE); NITRITE URINE POSITIVE (NEGATIVE); PROTEIN URINE 100 mg/dL (NEGATIVE); UROBILINOGEN URINE 8 mg/dL (NORMAL)
[2019-07-13 20:46] LABS: UR AMPHETAMINES QUAL NONE DETECTED (NONE DETECT); UR BARBITUATES QUAL NONE DETECTED (NONE DETECT); UR BENZODIAZEPIN QUAL NONE DETECTED (NONE DETECT); UR CANNABINOIDS QUAL NONE DETECTED (NONE DETECT); UR COCAINE QUAL NONE DETECTED (NONE DETECT); UR METHADONE QUAL NONE DETECTED (NONE DETECT); UR METHAMPHETAMINE QUAL NONE DETECTED (NONE DETECT); UR OPIATES QUAL NONE DETECTED (NONE DETECT); UR OXYCODONE QUAL NONE DETECTED (NONE DETECT); UR PCP QUAL NONE DETECTED (NONE DETECT); UR PROPOXYPHENE QUAL NONE DETECTED (NONE DETECT); UR TCA QUAL NONE DETECTED (NONE DETECT)
[2019-07-13 21:12] LABS: INFLUENZA A NEGATIVE (NEGATIVE); INFLUENZA B NEGATIVE (NEGATIVE)
[2019-07-13] MEDS ORDERED: ROCEPHIN 1 GM in NS 50 ML IV ONE (21:14)
--- NOTE | 2019-07-13 21:33 | PROVIDER DOCUMENTATION ---
This chart was entered by Elsi Umana Scribe, acting as scribe for Gordon Larsen CRNP. HPI-Syncope/Dizziness - General Chief Complaint: Syncope Stated Complaint: sycope Time Seen by Provider: 07/13/19 19:10 Source: RN/ Allergies/Adverse Reactions: Patient Allergies Allergy/AdvReac Type Severity Reaction Status Date / Time No Known Allergies Allergy Verified 01/30/14 19:17 Home Medications: Home Medication List Medication Instructions Recorded Confirmed Last Taken Type ATORVAstatin [Lipitor] 20 mg PO HS 01/30/14 05/21/19 Unknown History Furosemide 40 mg PO DAILY 01/30/14 05/21/19 Unknown History Glimepiride 4 mg PO DAILY 01/30/14 05/21/19 Unknown History Losartan/Hydrochlorothiazide 1 tab PO DAILY 01/30/14 05/21/19 Unknown History [Losartan-Hctz 100-25 mg Tab] Nifedipine [Nifedical Xl] 30 mg PO DAILY 01/30/14 05/21/19 Unknown History Meclizine [Antivert] 25 mg PO Q6H PRN 08/23/16 05/21/19 Unknown History Metformin [Glucophage] 500 mg PO BID 08/23/16 05/21/19 Unknown History Fexofenadine HCl [Shelley Allergy] 180 mg PO DAILY 05/21/19 05/21/19 Unknown History Fluticasone 50 Mcg Nasal Babb[place] 1 spray INTRANASAL DAILY 05/21/19 05/21/19 Unknown History [Flonase] Insulin Glargine,Hum.rec.anlog 20 unit SQ DAILY 05/21/19 05/21/19 Unknown History [Lantus Solostar] Linaclotide [Linzess] 145 mcg PO PRN PRN 05/21/19 05/21/19 Unknown History Losartan/Hydrochlorothiazide 1 tab PO DAILY 05/21/19 05/21/19 Unknown History [Hyzaar 100-25 Tablet] Albuterol 2.5MG/Ipratrop 0.5MG 3 ml INH TID #60 neb 05/24/19 Unknown Rx [Duoneb] Azithromycin 500 mg PO DAILY #1 tab 05/24/19 Unknown Rx CefDINIR [Omnicef] 300 mg PO BID #14 cap 05/24/19 Unknown Rx - History of Present Illness-Syncope/Dizzy Nature of Presenting Problem: pt is a 64 yowf 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 pt went to answer door and was down 3-5 mins. family found pt and called ems. pt hx of leaky aortic valve and htn. pt currently being tx for UJTI, taking cipro. Prior Episodes: reports: single episode today Onset/Duration: reports: just prior to arrival Timing: reports: still present Position/Activity at time of episode: reports: standing Symptoms prior to episode: reports: none Context: reports: lost consciousness Loss of Consciousness: prolonged (minutes) Current Symptoms: reports: none/feels normal Recently Seen Here or By Another Healthcare Provider: Yes (tx for uti ) Review of Systems - Adult - REVIEW OF SYSTEMS - ADULT Constitutional: reports: no symptoms reported. denies: chills, fever, night sweats Eyes: reports: no symptoms reported Ears, Nose, Mouth & Throat: reports: no symptoms reported Cardiovascular: reports: no symptoms reported Respiratory: reports: no symptoms reported Gastrointestinal: reports: no symptoms reported Genitourinary: reports: no symptoms reported Musculoskeletal: reports: no symptoms reported Integumentary: reports: no symptoms reported Neurological: reports: see HPI, syncope. denies: dizziness/vertigo, headache/migraines, numbness Psychiatric: reports: no symptoms reported Endocrine: reports: no symptoms reported Hematologic/Lymphatic: reports: no symptoms reported Allergic/Immunologic: reports: no symptoms reported All Other Systems: Reviewed and Negative Past History - Adult - PAST MEDICAL HISTORY-ADULT Review of Records: reports: Nursing Assessment Review, Medications Reviewed, Social history reviewed & non-contributory. Major Childhood Illnesses: reports: denies history Cardiovascular: reports: HTN Respiratory: reports: denies history Gastrointestinal: reports: diverticulosis Obstetrical/Gynecological: reports: denies history Genitourinary: reports: denies history Musculoskeletal: reports: denies history Neurological: reports: denies history Psychiatric: reports: denies history Endocrine/Immune: reports: Diabetes Other Conditions: reports: denies history - PRIOR SURGERIES/PROCEDURES Surgical/Procedure History: reports: BTL, other (tubal ligation and carpal tunnel) - IMMUNIZATION STATUS Childhood Immunizations: See Nurse Assessment Flu Vaccine: See Nurse Assessment - FAMILY HISTORY Family History: reviewed, not pertinent - SOCIAL HISTORY Smoking: non-smoker Substance Use: none/never Physical Exam-General - PHYSICAL EXAM-ADULT Initial Vital Signs Reviewed: Yes - CONSTITUTIONAL General Appearance: appears well, alert, no apparent distress. negative: lethargic, slow to respond, obtunded - EYES Eyes: PERRL/EOMI - HEAD, EARS, NOSE, MOUTH & THROAT HENMT: normocephalic/atraumatic, moist mucous membranes, normal ENT inspection - NECK Neck: non-tender, full range of motion, supple, normal inspection - RESPIRATORY Respiratory: chest non-tender, lungs clear, normal breath sounds - CARDIOVASCULAR Cardiovascular: normal peripheral pulses, regular rate, rhythm - GASTROINTESTINAL (ABDOMEN) Abdominal Exam: normal bowel sounds, non tender, soft - MUSCULOSKELETAL Back Exam: normal inspection Extremity: normal range of motion, non-tender, normal inspection - SKIN Integumentary: normal color, normal turgor, warm/dry - 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, grossly normal, no motor/sensory deficits - PSYCHIATRIC Psych/Mental Status: normal mood/affect, normal thought content, normal thought process, oriented x 3 Progress - PLAN OF CARE/RESULTS Progress/Plan/Lab Results: Vital Signs - 8 hr 07/13/19 19:00 07/13/19 20:07 07/13/19 21:12 Temperature 98.2 F Pulse Rate 88 93 H Pulse Rate [Sitting] 94 H Pulse Rate [Standing] 104 H Pulse Rate [Supine] 88 Respiratory Rate 16 12 Blood Pressure 93/70 138/82 Blood Pressure [Sitting] 127/87 Blood Pressure [Standing] 113/74 Blood Pressure [Supine] 114/77 O2 Sat by Pulse Oximetry 97 93 L Laboratory Results - last 24 hr 07/13/19 07/13/19 07/13/19 19:18 19:38 19:38 WBC RBC Hgb Hct MCV MCH MCHC RDW Std Deviation Plt Count MPV Immature Gran % (Auto) Neut % (Auto) Lymph % (Auto) [place] % (Auto) Eos % (Auto) Baso % (Auto) Immature Gran # (Auto) Neut # (Auto) Lymph # (Auto) [place] # (Auto) Eos # (Auto) Baso # (Auto) Sodium Potassium Chloride Carbon Dioxide Anion Gap BUN Creatinine Estimated GFR/1.73 m2 BUN/Creatinine Ratio Glucose POC Glucose 220 H Calculated Osmolality Calcium Phosphorus 2.4 L Magnesium Total Bilirubin AST ALT Alkaline Phosphatase Creatine Kinase 87 Troponin T High Sens Total Protein Albumin Globulin Albumin/Globulin Ratio TSH Free T4 Urine Source Urine Color Urine Turbidity Urine pH Ur Specific [place] Urine Protein Ur Glucose (Stick) Ur Ketones (Stick) Urine Blood Urine Nitrite Urine Bilirubin Urobilinogen Dipstick Urine Leukocytes Urine WBC (Auto) Urine RBC (Auto) U Epithel Cells (Auto) Urine Bacteria (Auto) Urine Opiates Screen Ur Oxycodone Screen Urine Methadone Screen U Propoxyphene Qual Ur Barbituates Screen Ur Tricyclics Screen Ur Phencyclidine Scrn Ur Amphetamines Screen U Methamphetamines Scrn U Benzodiazepines Scrn Urine Cocaine Screen U Cannabinoids Screen Influenza A (Rapid) Influenza B (Rapid) 07/13/19 07/13/19 07/13/19 19:38 19:38 19:38 WBC 17.26 H RBC 4.64 Hgb 12.1 Hct 38.7 MCV 83.4 MCH 26.1 L MCHC 31.3 L RDW Std Deviation 15.0 H Plt Count 483 H MPV 10.6 H Immature Gran % (Auto) 0.5 Neut % (Auto) 76.6 H Lymph % (Auto) 12.1 L [place] % (Auto) 9.1 Eos % (Auto) 1.1 Baso % (Auto) 0.6 Immature Gran # (Auto) 0.08 H Neut # (Auto) 13.23 H Lymph # (Auto) 2.09 [place] # (Auto) 1.57 H Eos # (Auto) 0.19 Baso # (Auto) 0.10 Sodium 132 L Potassium 3.8 Chloride 89 L Carbon Dioxide 21 L Anion Gap 22 BUN 22 Creatinine 1.3 H Estimated GFR/1.73 m2 41 BUN/Creatinine Ratio 17 Glucose 256 H POC Glucose Calculated Osmolality 277 Calcium 9.4 Phosphorus Magnesium 1.2 L Total Bilirubin 0.40 AST 48 H ALT 24 Alkaline Phosphatase 56 Creatine Kinase Troponin T High Sens Total Protein 8.3 Albumin 4.0 Globulin 4.0 Albumin/Globulin Ratio 1.0 TSH 11.58 H Free T4 1.31 Urine Source Urine Color Urine Turbidity Urine pH Ur Specific [place] Urine Protein Ur Glucose (Stick) Ur Ketones (Stick) Urine Blood Urine Nitrite Urine Bilirubin Urobilinogen Dipstick Urine Leukocytes Urine WBC (Auto) Urine RBC (Auto) U Epithel Cells (Auto) Urine Bacteria (Auto) Urine Opiates Screen Ur Oxycodone Screen Urine Methadone Screen U Propoxyphene Qual Ur Barbituates Screen Ur Tricyclics Screen Ur Phencyclidine Scrn Ur Amphetamines Screen U Methamphetamines Scrn U Benzodiazepines Scrn Urine Cocaine Screen U Cannabinoids Screen Influenza A (Rapid) Influenza B (Rapid) 07/13/19 07/13/19 07/13/19 19:38 20:30 20:30 WBC RBC Hgb Hct MCV MCH MCHC RDW Std Deviation Plt Count MPV Immature Gran % (Auto) Neut % (Auto) Lymph % (Auto) [place] % (Auto) Eos % (Auto) Baso % (Auto) Immature Gran # (Auto) Neut # (Auto) Lymph # (Auto) [place] # (Auto) Eos # (Auto) Baso # (Auto) Sodium Potassium Chloride Carbon Dioxide Anion Gap BUN Creatinine Estimated GFR/1.73 m2 BUN/Creatinine Ratio Glucose POC Glucose Calculated Osmolality Calcium Phosphorus Magnesium Total Bilirubin AST ALT Alkaline Phosphatase Creatine Kinase Troponin T High Sens 16 Total Protein Albumin Globulin Albumin/Globulin Ratio TSH Free T4 Urine Source CLEAN CATCH Urine Color ORANGE Urine Turbidity TURBID Urine pH 5.0 Ur Specific [place] 1.010 Urine Protein 100 A Ur Glucose (Stick) NEGATIVE Ur Ketones (Stick) NEGATIVE Urine Blood NEGATIVE Urine Nitrite POSITIVE A Urine Bilirubin MODERATE A Urobilinogen Dipstick 8 A Urine Leukocytes MODERATE A Urine WBC (Auto) 20-40 A Urine RBC (Auto) 20-40 A U Epithel Cells (Auto) >10 A Urine Bacteria (Auto) 2+ Urine Opiates Screen NONE DETECTED Ur Oxycodone Screen NONE DETECTED Urine Methadone Screen NONE DETECTED U Propoxyphene Qual NONE DETECTED Ur Barbituates Screen NONE DETECTED Ur Tricyclics Screen NONE DETECTED Ur Phencyclidine Scrn NONE DETECTED Ur Amphetamines Screen NONE DETECTED U Methamphetamines Scrn NONE DETECTED U Benzodiazepines Scrn NONE DETECTED Urine Cocaine Screen NONE DETECTED U Cannabinoids Screen NONE DETECTED Influenza A (Rapid) Influenza B (Rapid) 07/13/19 20:53 WBC RBC Hgb Hct MCV MCH MCHC RDW Std Deviation Plt Count MPV Immature Gran % (Auto) Neut % (Auto) Lymph % (Auto) [place] % (Auto) Eos % (Auto) Baso % (Auto) Immature Gran # (Auto) Neut # (Auto) Lymph # (Auto) [place] # (Auto) Eos # (Auto) Baso # (Auto) Sodium Potassium Chloride Carbon Dioxide Anion Gap BUN Creatinine Estimated GFR/1.73 m2 BUN/Creatinine Ratio Glucose POC Glucose Calculated Osmolality Calcium Phosphorus Magnesium Total Bilirubin AST ALT Alkaline Phosphatase Creatine Kinase Troponin T High Sens Total Protein Albumin Globulin Albumin/Globulin Ratio TSH Free T4 Urine Source Urine Color Urine Turbidity Urine pH Ur Specific [place] Urine Protein Ur Glucose (Stick) Ur Ketones (Stick) Urine Blood Urine Nitrite Urine Bilirubin Urobilinogen Dipstick Urine Leukocytes Urine WBC (Auto) Urine RBC (Auto) U Epithel Cells (Auto) Urine Bacteria (Auto) Urine Opiates Screen Ur Oxycodone Screen Urine Methadone Screen U Propoxyphene Qual Ur Barbituates Screen Ur Tricyclics Screen Ur Phencyclidine Scrn Ur Amphetamines Screen U Methamphetamines Scrn U Benzodiazepines Scrn Urine Cocaine Screen U Cannabinoids Screen Influenza A (Rapid) NEGATIVE Influenza B (Rapid) NEGATIVE Orders Category Date Time Status Admit - [facility] Routine AdmDCTranf 07/13/19 21:26 Active Nursing- Obtain EKG ONCE Care 07/13/19 18:52 Active Orthostatic Vital Signs NOW Care 07/13/19 18:53 Active CHEST-2 VIEWS [RAD] Stat Exams 07/13/19 18:52 Completed BLOOD CULTURE [BLDCUL] Stat Lab 07/13/19 21:27 Uncollected CBC WITH ELECTRONIC DIFF [HEME] Stat Lab 07/13/19 19:38 Completed CK PROFILE [SP CHEM] Stat Lab 07/13/19 19:38 Completed COMPREHENSIVE METABOLIC PANEL [CHEM] Stat Lab 07/13/19 19:38 Completed FREE T4 Stat Lab 07/13/19 19:[address] Stat Lab 07/13/19 20:53 Completed MAGNESIUM [CHEM] Stat Lab 07/13/19 19:38 Completed PHOSPHORUS [CHEM] Stat Lab 07/13/19 19:38 Completed TROPONIN T HIGH SENSITIVITY Stat Lab 07/13/19 19:38 Completed TSH Stat Lab 07/13/19 19:38 Completed UA NIMS W/REFLEX CULT [URINALYSIS] Stat Lab 07/13/19 20:30 Completed URINE CULTURE [RM] Routine Lab 07/13/19 20:42 Or[address] URINE DRUG SCREEN [address] Stat Lab 07/13/19 20:30 Completed 0.9% Sodium Chloride Inj [Ns] 1,000 ml Med 07/13/19 20:22 Discontinued IV 999 mls/hr CefTRIAXONE [Rocephin] 1 gm Med 07/13/19 21:14 Active 0.9% Sodium Chloride Inj [Ns] 50 ml IV NOW EKG [EKG] Stat Ther 07/13/19 18:52 Ordered Transfer/Admit Order [TRANSFER] Routine Transfer 07/13/19 21:27 Ordered Result Diagrams: 07/13/19 19:38 07/13/19 19:38 - EKG 1 Time of EKG reading by physician:: 19:17 EKG Read and Signed by:: Yomaira Song EKG Interpretation (*Must complete 3 of following elements*): Normal Rate: 94 Rhythm: NSR [place]: normal QRS: normal WA Interval: normal ST Wave: normal Comments: - stemi - XRAY 1 XRAY Study: Chest Impression: Normal, See EMR Report ( EXAM: CHEST-2 VIEWS INDICATION: cp TECHNIQUE: 2 views COMPARISON: 05/21/2019 FINDINGS: The lungs are grossly clear. There is no discrete pleural fluid collection or pneumothorax. The cardiomediastinal silhouette and central vasculature are grossly unremarkable. IMPRESSION: No evidence of acute pathology by plain radiograph. Electronically signed by Kamlesh Umana 07/13/2019 8:17 PM) - CONSULTS/PCP/HOSPITALIST Notification #1 *Consult/PCP/Hospitalist*: Dr. Rodriguez Time Discussed: 21:19 Consult Disposition: Admit Departure - Departure Date of Disposition Decision: 07/13/19 Time of Disposition Decision: 21:32 DIAGNOSIS: UTI (urinary tract infection), Failure of outpatient treatment Disposition: ADMITTED INPATIENT 09 Certified Medical Emergency: Emergent Condition: Critical Additional Instructions: ED Follow Up Instructions: You have been treated by a care provider in the Emergency Department. These instructions are being provided to you so you can have an understanding of how to care for yourself upon discharge. Upon discharge from the Emergency Department, you are responsible for making arrangements for follow-up care by a physician of your choice. Take all prescribed medications as directed. Return to the Emergency Department immediately for any new or worsening symptoms. You may call the Physician Referral phone number at [phone] to obtain a list of Physicians who are taking new patients. Referrals and Follow-Ups: None,PCP [Primary Care Provider] - - Critical Care Note This patient required my direct & personal management of CC.: No Attestation - Physician/ YOJANA Attestation Patient care was provided by Advanced Practice Provider:: Yes Advanced Practice Provider:: Gordon Larsen Advanced Practice Provider documentation review:: The Mid-level provider documentation, treatment plan and medical decision making was reviewed by the physician who agrees with all treatment and medical decision making by the MLP. The physician spent face to face time with patient:: No Advanced Practice Provider documentation review:: Supervising physician onsite and consulted in the evaluation and care of this patient. The physician did not have a face to face encounter with the patient. This chart was documented by the indicated scribe, (Elsi Umana Scribe) and accurately reflects the services I performed and decisions made by , Gordon Larsen CRNP, as attested by the provider's signature.
[2019-07-13] MEDS ORDERED: TYLENOL PO PRN (23:16)
[2019-07-14 00:25] LABS: INR 1.02; PROTIME 13.9 Seconds (11.0-16.0)
[2019-07-14 06:13] LABS: BASO# 0.08 X1000 (0.0-0.2); BASO% 0.7 % (0.0-0.8); EOS# 0.34 X1000 (0.0-0.7); EOS% 3.1 % (0.0-10.0); HEMATOCRIT 36.4 % (37.0-47.0); HEMOGLOBIN 11.1 g/dL (12.0-16.0); IMM GRAN# 0.03 X1000 (0.0-0.04); IMM GRAN% 0.3 % (0.0-0.5); LYMPH# 1.81 X1000 (1.2-3.4); LYMPH% 16.5 % (20.5-51.1); MCH 25.8 PG (27-31); MCHC 30.5 g/dL (33-37); MCV 84.5 FL (81-99); MONO% 10.1 % (1.7-9.3); MPV 10.1 FL (7.4-10.4); NEUT# 7.58 X1000 (1.4-6.5); NEUT% 69.3 % (42.2-75.2); PLT 388 X1000 (130-400); RBC 4.31 XMIL (4.2-5.4); WBC 10.94 X1000 (4.8-10.8)
[2019-07-14 06:27] LABS: AGAP 14; ALBUMIN 3.4 g/dL (3.5-5.0); ALKALINE PHOSPHATASE 48 U/L (32-104); BUN 17 mg/dL (8-22); CALCIUM 8.8 mg/dL (8.8-10.2); CHLORIDE 97 mmol/L (98-107); CK PROFILE 65 U/L (24-173); COSMO 279; CREATININE 0.9 mg/dL (0.5-0.9); ESTIMATED GFR > 60; GLUCOSE 162 mg/dL (70-104); GOT 32 U/L (10-30); GPT 18 U/L (10-36); POTASSIUM 3.1 mmol/L (3.5-5.1); SODIUM 137 mmol/L (136-145); TCO2 26 mmol/L (25-35); TOTAL PROTEIN 7.3 g/dL (6.3-8.3)
--- NOTE | 2019-07-14 06:50 | EKG Report ---
Test Performed on : 07/13/2019 7:13:33 PM Test Reason : cp Blood Pressure : / mmHG Vent. Rate : 094 BPM Atrial Rate : 094 BPM P-R Int : 110 ms QRS Dur : 072 ms QT Int : 350 ms P-R-T Axes : 039 028 083 degrees QTc Int : 437 ms Sinus rhythm. with short [place] Septal infarct , age undetermined Abnormal ECG No previous ECGs available Unconfirmed Result
[2019-07-14] MEDS ORDERED: KLOR-CON PO ONE (08:04)
[2019-07-14] MEDS ORDERED: ANTIVERT PO PRN (08:10)
[2019-07-14] MEDS ORDERED: LINZESS PO PRN (08:10)
[2019-07-14] MEDS ORDERED: SOLU-MEDROL IV ONE (09:00)
[2019-07-14] MEDS: ALLEGRA PO SCH (09:19)
[2019-07-14] MEDS: FLONASE NAS SCH (09:19)
[2019-07-14] MEDS: AMARYL PO SCH ×2 (09:19→20:24)
[2019-07-14] MEDS: ROCEPHIN 1 GM in NS 50 ML IV SCH (09:19)
[2019-07-14] MEDS: LANTUS INSULIN SUBQ SCH (09:19)
[2019-07-14] MEDS: ADALAT CC PO SCH (09:19)
[2019-07-14] MEDS: DUONEB (A & A) INH SCH ×3 (09:21→20:19)
--- NOTE | 2019-07-14 10:19 | Vascular Study Report ---
EXAM: Carotid Ultrasound - 07/14/2019 HISTORY: syncope TECHNIQUE: Carotid flow studies COMPARISON: None. FINDINGS: There is calcific atherosclerotic plaquing at the carotid bulb and proximal internal carotid on the right. Maximal systolic velocity at the right internal carotid is 90 cm/s, and maximum diastolic velocity is 35 cm/s. The right internal to common carotid systolic velocity ratio is 0.9. The flow velocities and ratio are consistent with 0-39% stenosis at the right internal carotid. The right vertebral demonstrates antegrade flow. There are some atherosclerotic plaquing at the carotid bulb and proximal internal carotid on the left. Maximal systolic velocity at the left internal carotid is 66 cm/s, and maximum diastolic velocity is 26 cm/s. The left internal to common carotid systolic velocity ratio is 0.8. The flow velocities and ratio are consistent with 0-39% stenosis at the left internal carotid. The left vertebral demonstrates antegrade flow. IMPRESSION: Atherosclerotic plaquing at right carotid bulb and proximal right internal carotid. The flow velocities and ratio are consistent with 0-39% stenosis at the right internal carotid. Atherosclerotic plaquing at left carotid bulb and proximal left internal carotid. The flow velocities and ratio are consistent with 0-39% stenosis at the left internal carotid. Electronically signed by Aguilar Talbot 07/14/2019 10:17 AM
[2019-07-14] MEDS: DIFLUCAN PO SCH (10:30)
[2019-07-14] MEDS: HUMULIN R (PARKWAY) SUBQ SCH ×3 (12:19→21:28)
--- NOTE | 2019-07-14 16:11 | ECHO REPORT ---
ORDER DATE: 07/14/2019 INTERPRETING PHYSICIAN: Giovanni Peres MD INDICATION: Syncope. M-MODE MEASUREMENTS: Left ventricle end diastole: 4.3 cm. Left ventricle end systole: 2.7 cm. Posterior wall: 1.0 cm. Interventricular septum: 1.0 cm. Left atrium: 4.3 cm. Aortic diameter: 3.7 cm. SUMMARY OF 2-DIMENSIONAL IMAGIN. Left ventricular function appears to be normal. Ejection fraction is 71%. No wall motion abnormality noted. 2. The left atrium is normal. 3. The mitral valve is normal. Color flow mapping is unremarkable. 4. Pulse wave Doppler of mitral inflow shows reversal of the E and the A ratio. Ratio is 0.5. 5. Tissue Doppler of septal and lateral mitral annulus averages 7.5 cm. 6. There is no diastolic dysfunction. 7. The aortic valve shows a mild degree of regurgitation but there is no aortic stenosis. 8. The tricuspid valve shows a mild degree of regurgitation. 9. Pulmonary pressure is estimated at 35 mmHg. 10.The pulmonic valve appears to be normal. 11.The right-sided chambers appear to be normal. 12.There is no pericardial effusion and no sign of thrombus. Clinical correlation is recommended. cc: Giovanni Peres MD
--- NOTE | 2019-07-14 19:33 | HISTORY AND PHYSICAL ---
PRIMARY CARE PROVIDERS: Kenna Whitney MD. CHIEF COMPLAINT: Dizziness and passed out. Urinary burning. HISTORY OF PRESENT ILLNESS: Ms. Shivani Ramos is a 64-year-old female with a medical history of diabetes mellitus type 2, hyperlipidemia, hypertension, diverticulosis, and back in May she had pneumonia and is now here with a complaint of having a passing out spell. Apparently, yesterday she had sat up, passed out to open the door. Her sister found her passed out for about 2 to 3 minutes and would every time she would awaken they tried to stand her up and she had passed out again. Apparently, her sister is a nurse who reported her blood pressure being low. This happened around 5 p.m. Once she arrived here, symptoms of syncope resolved. She was found to have a urinary tract infection, which includes her symptoms of urinary frequency, urgency, and dysuria. She has also had yeast infection symptoms with itching and burning. Last Thursday, which was 6 days ago, she had presented with the symptoms and was sent home with Cipro and Flagyl. Apparently, these did not help with her symptoms. PAST MEDICAL HISTORY: 1. Diabetes mellitus type 2. 2. Hyperlipidemia. 3. Hypertension. 4. Diverticulosis. 5. Pneumonia in May. 6. Seasonal allergies. SURGICAL HISTORY: 1. Tubal ligation. 2. Anterior cervical disk fusion. 3. Carpal tunnel. SOCIAL HISTORY: Denies tobacco. Drinks wine maybe twice the year. No illicit drug use. FAMILY HISTORY: Mother had cervical cancer and stroke. Father of old age. One sister with diabetes. One sister with lung cancer and another sister with stomach cancer and the sister with stomach cancer at age 16 with the stomach cancer. ALLERGIES: No known drug allergies. HOME MEDICATIONS: 1. Shelley 180 mg p.o. daily. 2. Antivert 25 mg p.o. every 6 hours p.r.n. 3. Flonase daily. 4. Furosemide 40 mg p.o. daily. 5. Glimepiride 4 mg p.o. twice daily. 6. Metformin 500 mg p.o. twice daily. 7. Insulin glargine 30 units subcutaneous daily. 8. Linzess 145 mcg p.r.n. 9. Lipitor 20 mg p.o. nightly. 10. Losartan hydrochlorothiazide 1 tablet p.o. daily. 11. Nifedipine 30 mg p.o. daily. 12. Albuterol, Atrovent nebulizers as needed 3 times a day. It was back in May when she had pneumonia. REVIEW OF SYSTEMS: Fourteen point review of systems are complete and all were negative for those mentioned above in HPI. PHYSICAL EXAMINATION: VITAL SIGNS: Temperature 97.9 degrees, heart rate 88, respiratory rate 16, blood pressure 154/74, O2 saturation 96% on room air. GENERAL: Ms. Shivani Ramos is a 64-year-old female. She is in no acute distress. She is able answer questions appropriately. HEENT: Atraumatic, normocephalic. Pupils equal, round, reactive to light. Extraocular movements intact. Mucous membranes dry. NECK: Trachea midline. CARDIOVASCULAR: S1, S2. Regular rate and rhythm. No rubs, gallops, murmurs. No lower extremity edema. +2 dorsalis and radial pulses. Negative for JVD or carotid bruits. PULMONARY: Clear to auscultation, bilateral breath sounds. No accessory muscle use or work of breathing noted, tolerating room air. GASTROINTESTINAL: Soft, nontender, nondistended. Positive bowel sounds x4. EXTREMITIES: Moves all extremities equally. Full range of motion. NEUROLOGIC: A and O x 3. Follows commands. Sensory is intact. SKIN: Warm, dry, intact. LABORATORY DATA: White blood cells 10,000, hemoglobin 11, hematocrit 36, platelet count 388,000. INR is 1.02, PTT is 29. Sodium 137, potassium 3.1, BUN 17, creatinine 0.9, glucose 162, calcium 8.8, magnesium was 1.3, bilirubin 0.40, AST 32, ALT 18, CK 65, troponin 15, albumin 3.4. Initial lactate was 2.9 and 1.7 and 1.5. TSH 11, free T4 is 1.31. Urinalysis 100 protein, positive nitrites, moderate bilirubin, 8 urobilinogen, moderate leukocytes, 20 to 40 white blood cells, 20 to 40 red blood cells and 2+ bacteria. Urine drug screen negative. Influenza A and B negative. IMAGING: Chest x-ray no acute findings. Carotid ultrasound 0 to 39 percent both carotids. EKG sinus rhythm, rate 94, QTc is 437. ASSESSMENT AND PLAN: 1. Failed outpatient treatment of urinary tract infection. She will be on Rocephin 1 g IV q.24 hours. 2. Yeast infection. She will be on Diflucan 100 mg p.o. daily. 3. Orthostatic hypotension with syncopal spells yesterday, improved with IV fluid hydration and antibiotic treatment. 4. Sepsis secondary to the urinary tract infection. She received IV fluid hydration and gram negative coverage for the urinary tract infection. 5. Diabetes mellitus type 2. Will do pattern blood glucoses and sliding scale insulin. 6. Hyperlipidemia. Continue statin. 7. Hypertension but did have some orthostatic hypotension, so we will hold the Lasix. We will hold the hydrochlorothiazide. We will continue the nifedipine. 8. Had pneumonia in May but no complaints since then. 9. Seasonal allergies. Continue Shelley please add past medical history, and also continue Flonase. 10. Deep venous thrombosis prophylaxis SCDs. Dictated by GEGE Atkins for Nelson Colón MD cc: GEGE Atkins MD
[2019-07-14] MEDS: LIPITOR PO SCH (20:24)
[2019-07-14] MEDS ORDERED: ROCEPHIN 1 GM in NS 50 ML IV SCH (21:30)
--- NOTE | 2019-07-15 02:45 | HISTORY AND PHYSICAL ---
ADDENDUM: Patient seen and examined by myself. Full note dictated and discussed with nurse practitioner. Patient presented to the hospital after having a syncopal episode at home. Currently, she is awake, alert, oriented. Does appears as though she has urinary tract infection. We are going to place her on antibiotics, IV fluids and we will follow. cc: Nelson Colón MD
[2019-07-15] MEDS ORDERED: LINZESS PO PRN (06:15)
[2019-07-15 06:21] LABS: BASO# 0.03 X1000 (0.0-0.2); BASO% 0.2 % (0.0-0.8); HEMATOCRIT 37.5 % (37.0-47.0); HEMOGLOBIN 11.3 g/dL (12.0-16.0); IMM GRAN# 0.06 X1000 (0.0-0.04); IMM GRAN% 0.5 % (0.0-0.5); LYMPH# 1.37 X1000 (1.2-3.4); LYMPH% 11.1 % (20.5-51.1); MCH 25.6 PG (27-31); MCHC 30.1 g/dL (33-37); MCV 84.8 FL (81-99); MONO# 0.99 X1000 (0.11-0.59); MPV 10.5 FL (7.4-10.4); NEUT# 9.92 X1000 (1.4-6.5); NEUT% 80.2 % (42.2-75.2); PLT 436 X1000 (130-400); RBC 4.42 XMIL (4.2-5.4); RDW 15.2 % (11.5-14.5); WBC 12.37 X1000 (4.8-10.8)
[2019-07-15] MEDS: HUMULIN R (PARKWAY) SUBQ SCH ×4 (06:27→21:34)
[2019-07-15 06:39] LABS: AGAP 14; ALBUMIN 3.5 g/dL (3.5-5.0); ALKALINE PHOSPHATASE 50 U/L (32-104); BUN 18 mg/dL (8-22); CALCIUM 9.3 mg/dL (8.8-10.2); CHLORIDE 101 mmol/L (98-107); COSMO 288; CREATININE 0.8 mg/dL (0.5-0.9); ESTIMATED GFR > 60; GLUCOSE 326 mg/dL (70-104); GOT 24 U/L (10-30); GPT 18 U/L (10-36); MAGNESIUM 1.7 mg/dL (1.5-2.7); SODIUM 137 mmol/L (136-145); TCO2 23 mmol/L (25-35); TOTAL PROTEIN 7.4 g/dL (6.3-8.3)
[2019-07-15] MEDS: DIFLUCAN PO SCH (08:21)
[2019-07-15] MEDS: ADALAT CC PO SCH (08:21)
[2019-07-15] MEDS: ALLEGRA PO SCH (08:21)
[2019-07-15] MEDS: FLONASE NAS SCH (08:21)
[2019-07-15] MEDS: AMARYL PO SCH ×2 (08:22→17:19)
[2019-07-15] MEDS: LANTUS INSULIN SUBQ SCH (08:23)
[2019-07-15] MEDS: ROCEPHIN 1 GM in NS 50 ML IV SCH (09:00)
[2019-07-15] MEDS ORDERED: SOLU-MEDROL IV ONE (10:02)
[2019-07-15] MEDS: DUONEB (A & A) INH SCH ×3 (15:12→20:11)
--- NOTE | 2019-07-15 19:24 | PROGRESS NOTE ---
DATE: 07/15/2019 SUBJECTIVE: The patient notes that she is feeling a lot better. Notes that she has been up ambulating. Denies any current shortness of breath, chest pain or palpitations. Denies fevers or chills. She notes that her itching in her hands and feet are better, although still present in her feet. Denies any rash. OBJECTIVE: Vital signs reviewed. She is awake, alert. She is in no distress.HEENT: Normocephalic. Neck supple. Cardiovascular: Regular rate. Chest clear. Abdomen soft. Extremities: Moves all extremities. ASSESSMENT: 1. Syncope of undetermined origin. 2. Orthostatic hypotension, appears improving. 3. Diabetes. 4. Hypertension. 5. Recent pneumonia. PLAN: We are going to continue the patient in the hospital, give her 1 more dose of Solu-Medrol. Continue to follow. Hopefully her symptoms can improve and she can discharge home. cc: Nelson Colón MD
[2019-07-15] MEDS: LIPITOR PO SCH (20:02)
[2019-07-15] MEDS ORDERED: HUMULIN R (PARKWAY) IV ONE (23:35)
[2019-07-16] MEDS: HUMULIN R (PARKWAY) SUBQ SCH ×2 (06:02→11:20)
[2019-07-16 06:33] LABS: BASO# 0.02 X1000 (0.0-0.2); BASO% 0.2 % (0.0-0.8); HEMATOCRIT 37.3 % (37.0-47.0); HEMOGLOBIN 11.4 g/dL (12.0-16.0); IMM GRAN# 0.08 X1000 (0.0-0.04); IMM GRAN% 0.7 % (0.0-0.5); LYMPH# 1.33 X1000 (1.2-3.4); LYMPH% 11.9 % (20.5-51.1); MCH 26.1 PG (27-31); MCHC 30.6 g/dL (33-37); MCV 85.6 FL (81-99); MONO# 0.71 X1000 (0.11-0.59); MONO% 6.3 % (1.7-9.3); MPV 10.5 FL (7.4-10.4); NEUT# 9.05 X1000 (1.4-6.5); NEUT% 80.9 % (42.2-75.2); PLT 405 X1000 (130-400); RBC 4.36 XMIL (4.2-5.4); RDW 15.5 % (11.5-14.5); WBC 11.19 X1000 (4.8-10.8)
[2019-07-16 06:41] LABS: AGAP 15; ALBUMIN 3.7 g/dL (3.5-5.0); ALKALINE PHOSPHATASE 49 U/L (32-104); BUN 19 mg/dL (8-22); CALCIUM 9.2 mg/dL (8.8-10.2); CHLORIDE 104 mmol/L (98-107); COSMO 293; CREATININE 0.7 mg/dL (0.5-0.9); ESTIMATED GFR > 60; GLUCOSE 341 mg/dL (70-104); GOT 29 U/L (10-30); GPT 24 U/L (10-36); MAGNESIUM 1.7 mg/dL (1.5-2.7); POTASSIUM 4.3 mmol/L (3.5-5.1); SODIUM 139 mmol/L (136-145); TCO2 21 mmol/L (25-35); TOTAL PROTEIN 7.3 g/dL (6.3-8.3)
[2019-07-16 07:22] LABS: LARGE PLATELETS OCCASIONAL; LYMPHS 15 % (21-51); OVALOCYTES OCCASIONAL; POIKILOCYTOSIS OCCASIONAL; SEGS 84 % (42-75)
[2019-07-16] MEDS: DUONEB (A & A) INH SCH (08:16)
[2019-07-16 08:27] VITALS: BP 141/82
[2019-07-16] MEDS: ADALAT CC PO SCH (09:13)
[2019-07-16] MEDS: ALLEGRA PO SCH (09:13)
[2019-07-16] MEDS: ROCEPHIN 1 GM in NS 50 ML IV SCH (09:13)
[2019-07-16] MEDS: DIFLUCAN PO SCH (09:14)
[2019-07-16] MEDS: AMARYL PO SCH (09:14)
[2019-07-16] MEDS: FLONASE NAS SCH (09:14)
[2019-07-16] MEDS: LANTUS INSULIN SUBQ SCH (09:15)
--- NOTE | 2019-07-16 13:49 | DISCHARGE SUMMARY ---
ADMISSION DATE: 07/14/2019 DISCHARGE DATE: 07/16/2019 ADMISSION DIAGNOSES: 1. Failed outpatient treatment of urinary tract infection. 2. Yeast infection. 3. Orthostatic hypotension with syncopal spells. 4. Sepsis secondary to urinary tract infection. 5. Diabetes mellitus type 2. 6. Hyperlipidemia. 7. Hypertension with orthostasis. 8. History of pneumonia in May. 9. Seasonal allergies. DISCHARGE DIAGNOSIS: 1. Syncope of undetermined origin. 2. Orthostatic hypotension, improving. 3. Diabetes. 4. Hypertension. 5. Recent pneumonia. 6. Hungry Horse like there was urinary tract infection, but the urine has no growth with a culture that was performed. CONSULTATIONS: None. HOSPITAL COURSE: Ms. Shivani Ramos is a 64-year-old female who presented to the emergency department at [facility], [place] on the 13 of July. She was admitted by the , but she had complaints of passing-out spells, and burning with urination. She was actually being treated for urinary tract infection when she presented. We continued to treat that. The urine was dirty. The culture never grew out anything. Syncopal spells were only on the one day. She did have associated hypotension with a single syncopal spell. She also had yeast infection that she was on Diflucan for. The syncope workup was negative and it was felt to be more from orthostasis and that has resolved. She will be discharged home. DISCHARGE VITAL SIGNS: Temperature 97.6 degrees, heart rate 80, respiratory rate 20, blood pressure 146/84, O2 saturation 93% on room air. Her last set of orthostatic vital signs were at 8:30 this morning. Supine heart rate 97, blood pressure 141/82, sitting heart rate 95, blood pressure 153/77, and standing was heart rate 98, blood pressure 141/83. DISCHARGE LAB DATA: White blood cells 11,000, hemoglobin 11, hematocrit 37, platelet count 405,000. Sodium 139, potassium 4.3, BUN 19, creatinine 0.7, glucose was up to 341, calcium 9.2, magnesium 1.7, bilirubin 0.20, AST 29, ALT 24, albumin 3.7. Urine on the had positive nitrites and also had leukocytes and bacteria. The culture was negative. Also had negative blood cultures. PERTINENT IMAGING: On the , chest x-ray, no acute findings. On the , echocardiogram, EF 71%, no diastolic dysfunction, had a 35 mm Hg systolic on a pulmonary pressure. Bowel appeared to be normal. There is only a mild degree of aortic regurgitation but no stenosis. Carotid ultrasound on the , 0-39% bilaterally. EKG sinus rhythm, rate 94, QTc is 437. DISCHARGE MEDICATIONS: 1. Shelley 180 mg p.o. daily. 2. Antivert 25 mg p.o. q. 6 hours p.r.n. 3. Flonase intranasal daily. 4. Lasix 40 mg p.o. daily. 5. Glimepiride 4 mg p.o. twice daily. 6. Metformin 500 mg p.o. twice daily. 7. Insulin 30 units subcutaneous daily. 8. Linzess 145 mcg p.o. p.r.n. 9. Lipitor 20 mg p.o. nightly. 10. Nifedipine 30 mg p.o. daily. PHYSICIAN FOLLOWUP: Dr. Whitney. DISCHARGE INSTRUCTIONS: If her condition changes, contact physician and/or return to the emergency department. Changes may include, but not limited to shortness of breath, increased fatigue, excessive bleeding, unexplained weight loss or gain, unmanageable pain, signs or symptoms of infection. DISCHARGE ACTIVITY: As tolerated. DISCHARGE DIET: Diabetic. DISCHARGE DISPOSITION: Home. Dictated by GEGE Atkins for Nelson Colón MD cc: GEGE Atikns MD
--- NOTE | 2019-07-16 22:30 | DISCHARGE SUMMARY ---
ADMISSION DATE: 07/13/2019 DISCHARGE DATE: 07/16/2019 ADDENDUM: Patient seen and examined by myself. Full note dictated and discussed with nurse practitioner. On discharge, patient is awake, alert, pleasant. All of her symptoms have resolved. She notes that she is able to ambulate without any difficulty. She is feeling better and, therefore, she will be discharged home. cc: Nelson Colón MD
== END 2019-07-16 12:55 | disposition home or self-care (01) | DRG 312 ==
LOC: P.ED 19:06 → P.MEDSURG 22:23 → SUATTDRO 22:23
PROVIDERS: ATTEND Family Medicine